=== PATIENT | male | born 1935 | race Caucasian/White ===

== ENCOUNTER 2018-05-10 09:45 | Observation (INO) | payer MEDICARE, MEDICAID ==
[~2018-05-10] VITALS: Ht 165.1 cm; Wt 90.6 kg
[2018-05-10] MEDS ORDERED: SODIUM CHLORIDE 0.9% 1,000 ML IV SCH (10:19)
[2018-05-10 10:23] VITALS: BP 124/72
[2018-05-10] MEDS ORDERED: CEFAZOLIN PMX 1GM/50ML 50 ML IVPB ONE (10:30)
[2018-05-10] MEDS ORDERED: VENL225T PO (10:50)
[2018-05-10] MEDS ORDERED: CA C1TAB59 PO (10:50)
[2018-05-10] MEDS ORDERED: ALBU18HF INH (10:50)
[2018-05-10] MEDS ORDERED: CHOL100012 PO (10:50)
[2018-05-10] MEDS ORDERED: CARB1TAB44 PO (10:50)
[2018-05-10] MEDS ORDERED: DONE10TA7 PO (10:50)
[2018-05-10] MEDS ORDERED: oxygen NAS (10:50)
[2018-05-10] MEDS ORDERED: QUET50TA PO (10:50)
[2018-05-10] MEDS ORDERED: FLUT100B INH (10:50)
[2018-05-10] MEDS ORDERED: MAGN400T36 PO (10:50)
[2018-05-10] MEDS ORDERED: L-thyroxine PO (10:50)
[2018-05-10] MEDS ORDERED: MELA5TAB21 PO (10:50)
[2018-05-10] MEDS ORDERED: TAMS0.4C2 PO (10:50)
[2018-05-10] MEDS ORDERED: ASPI-621 PO (10:50)
[2018-05-10] MEDS ORDERED: CARB1TAB48 PO (10:50)
[2018-05-10] MEDS ORDERED: TIOT18CA INH (10:50)
[2018-05-10] MEDS ORDERED: LORA1TAB PO (10:50)
[2018-05-10] MEDS ORDERED: DUTA0.5C15 PO (10:50)
[2018-05-10 11:14] LABS: BASOPHILS # (AUTO) 0.03 x10^3/uL (0-0.1); BASOPHILS % (AUTO) 0 % (0-1); EOSINOPHILS # (AUTO) 0.31 x10^3/uL (0-0.4); EOSINOPHILS % (AUTO) 4 % (1-7); LYMPHOCYTES # (AUTO) 1.46 x10^3/uL (1-3.4); LYMPHOCYTES % (AUTO) 20 % (22-44); MD NO; MEAN CORPUSCULAR HEMOGLOBIN 32.1 pg (27.5-34.5); MEAN CORPUSCULAR HGB CONC 33.9 g/dL (33.2-36.2); MEAN CORPUSCULAR VOLUME 94.6 fL (81-97); MEAN PLATELET VOLUME 6.9 fL (7.4-10.4); MONOCYTES # (AUTO) 0.48 x10^3/uL (0.2-0.8); MONOCYTES % (AUTO) 7 % (2-9); NEUTROPHILS # (AUTO) 4.87 x10^3/uL (1.8-6.8); NEUTROPHILS % (AUTO) 68 % (42-75); PLATELET COUNT 173 x10^3/uL (130-400); RED BLOOD COUNT 4.63 x10^6/uL (4.38-5.82); RED CELL DISTRIBUTION WIDTH 14.2 % (9.4-14.8)
[2018-05-10 11:26] LABS: ALBUMIN 3.6 g/dL (3.4-5.0); ANION GAP 6 mmol/L (5-15); CALCIUM 8.4 mg/dL (8.5-10.1); CHLORIDE 108 mmol/L (98-107)
[2018-05-10 11:30] LABS: ALANINE AMINOTRANSFERASE 14 U/L (12-78); ALKALINE PHOSPHATASE 125 U/L (45-117); BILIRUBIN,TOTAL 0.7 mg/dL (0.2-1.0); CREATININE 1.39 mg/dL (0.7-1.3); TOTAL PROTEIN 7.3 g/dL (6.4-8.2)
[2018-05-10] MEDS ORDERED: CEFAZOLIN 1,000 MG ONE (12:24)
[2018-05-10] MEDS ORDERED: LIDOCAINE/PF 1%, 30ML ONE (12:24)
[2018-05-10] MEDS ORDERED: CEFAZOLIN PMX 1GM/50ML 50 ML ONE (12:24)
[2018-05-10] MEDS ORDERED: MIDAZOLAM 1 MG/ML, 5ML ONE (12:24)
[2018-05-10] MEDS ORDERED: FENTANYL PF 100 MCG/2ML ONE (12:24)
[2018-05-10] MEDS ORDERED: ZOLPIDEM 5MG TABLET PO PRN (13:30)
[2018-05-10] MEDS ORDERED: ONDANSETRON 2MG/ML, 2ML IV PRN (13:30)
[2018-05-10] MEDS ORDERED: HYDROcodone/APAP 5/325 TABLET PO PRN (13:30)
[2018-05-10 13:50] VITALS: BP 129/77
[2018-05-10] MEDS ORDERED: MAGN100T6 PO (19:34)
[2018-05-10 20:04] VITALS: BP 114/72
[2018-05-10] MEDS ORDERED: LORazepam 1MG TABLET PO PRN (20:30)
[2018-05-10] MEDS: SODIUM CHLORIDE FLUSH 10ML SYR IVF SCH (21:00)
[2018-05-10] MEDS ORDERED: CARBIDOPA/LEVODOPA 25 MG/250 MG TABLET PO SCH (21:00)
[2018-05-10] MEDS ORDERED: MELATONIN 5 MG TABLET PO SCH ×2 (21:00)
[2018-05-10] MEDS ORDERED: QUETIAPINE 25MG TABLET PO SCH ×2 (21:00)
[2018-05-10] MEDS ORDERED: QUETIAPINE 100MG TABLET ONE (21:13)
[2018-05-10] MEDS: CARBIDOPA/LEVODOPA CR 50 MG/200 MG TABLET PO SCH (21:55)
[2018-05-10] MEDS: CHOLECALCIFEROL 1,000 UNIT TABLET PO SCH (21:55)
[2018-05-10] MEDS: CEFAZOLIN PMX 1GM/50ML 50 ML IVPB SCH (21:56)
[2018-05-11 00:23] VITALS: BP 133/74
[2018-05-11] MEDS: CARBIDOPA/LEVODOPA 25 MG/250 MG TABLET PO SCH ×2 (06:00→06:03)
[2018-05-11] MEDS ORDERED: LEVOTHYROXINE 112 MCG TABLET PO SCH (06:00)
[2018-05-11] MEDS ORDERED: CARBIDOPA/LEVODOPA 25 MG/250 MG TABLET ONE (06:09)
[2018-05-11] MEDS: CEFAZOLIN PMX 1GM/50ML 50 ML IVPB SCH (06:15)
[2018-05-11] MEDS ORDERED: ACET325T14 PO (07:58)
[2018-05-11] MEDS: CHOLECALCIFEROL 1,000 UNIT TABLET PO SCH (08:28)
[2018-05-11] MEDS: CARBIDOPA/LEVODOPA CR 50 MG/200 MG TABLET PO SCH (08:28)
[2018-05-11 08:29] VITALS: BP 112/72
[2018-05-11] MEDS: SODIUM CHLORIDE FLUSH 10ML SYR IVF SCH (08:29)
[2018-05-11] MEDS ORDERED: CARBIDOPA/LEVODOPA CR 50 MG/200 MG TABLET PO SCH (09:00)
[2018-05-11] MEDS ORDERED: TAMSULOSIN 0.4 MG CAP.ER.24H PO SCH (09:00)
[2018-05-11] MEDS ORDERED: MAGNESIUM OXIDE 400 MG TABLET PO SCH (09:00)
[2018-05-11] MEDS ORDERED: VENLAFAXINE XR 37.5MG CAP.ER.24H PO SCH (09:00)
[2018-05-11] MEDS ORDERED: DUTASTERIDE 0.5 MG CAPSULE PO SCH (09:00)
[2018-05-11] MEDS ORDERED: ASPIRIN 81 MG TABLET EC PO SCH (09:00)
[2018-05-11] MEDS ORDERED: CALCIUM CITRATE 950 MG TABLET PO SCH (09:00)
[2018-05-11] MEDS ORDERED: DONEPEZIL 10 MG TABLET PO SCH (09:00)
== END 2018-05-11 10:00 | disposition home or self-care (01) ==
LOC: CACL 09:45 → 5SO 13:29 → INTOOBSV 13:29 → 5SO 13:55 → CACL 14:34 → DCLOUNGE 05-11 09:48
PROVIDERS: ADMIT Internal Medicine Cardiovascular Disease; ATTEND Internal Medicine Cardiovascular Disease
DX: I44.1 Atrioventricular block, second degree (principal); R00.1 Bradycardia, unspecified; F32.9 Major depressive disorder, single episode, unspecified; E03.9 Hypothyroidism, unspecified; F41.9 Anxiety disorder, unspecified
CPT/HCPCS: 33208; 36415; 71045; 80053; 85025; 96365; 96375; 99156; 99157; C1779; C1785; C1892; G0378; J0690; J2250; J3010; J3490